=== PATIENT | female | born 1990 | race Two or more races ===

== ENCOUNTER 2023-02-10 09:17 | Emergency (ER) | payer BC, OTHER ==
[~2023-02-10] VITALS: Ht 170.2 cm; Wt 70.0 kg
[2023-02-10 09:57] VITALS: BP 107/72; PULSE 86; RESP 16; TEMP 98.2; O2SAT 98
[2023-02-10] MEDS ORDERED: DexAMETHasone SOD PHOS 10MG/1ML VIAL INJ IM ONE (10:15)
[2023-02-10] MEDS ORDERED: cefTRIAXone SOD 1,000 MG VL IM ONE (10:15)
[2023-02-10] MEDS ORDERED: LIDO2SOL26 MT (10:37)
== END 2023-02-10 10:45 | disposition home or self-care (01) ==
LOC: ER 09:17
DX: J03.90 Acute tonsillitis, unspecified (principal)
CPT/HCPCS: 96372; 99284; J0696; J1100